=== PATIENT | male | born 1945 | race Caucasian/White ===

== ENCOUNTER 2019-07-11 08:16 | Day surgery (SDC) | payer MEDICARE, OTHER ==
--- NOTE | 2019-07-09 13:53 | HP ---
DATE OF SURGERY: 07/11/2019 ADMISSION DIAGNOSIS: Cyst of back. ANTICIPATED PROCEDURE: Excision. HISTORY OF PRESENT ILLNESS: PAST MEDICAL HISTORY: ALLERGIES: NONE. MEDICATIONS: Multiple. PAST SURGICAL HISTORY: Cholecystectomy. Finger surgery. Neck surgery. SOCIAL HISTORY: Negative. FAMILY HISTORY: Negative. REVIEW OF SYSTEMS: Diabetes, hypertension. PHYSICAL EXAMINATION: VITAL SIGNS: Normal. CHEST: Clear. COR: Regular. IMPRESSION: Cyst of back. PLAN: Excision.
[~2019-07-11 08:16] MED LIST: Lactated Ringers 0 ML IV ONE; Lactated Ringers 1,000 ML IV SCH; Sodium Chloride 0.9% 1000 ML 1,000 ML ONE; XYLOCAINE 1% HCL 20 ML MDV ONE
[2019-07-11] MEDS ORDERED: DEMEROL 50 MG IJ ONE (08:17)
[2019-07-11] MEDS ORDERED: VERSED 5 MG/5 ML IV ONE (08:17)
[2019-07-11 12:04] VITALS: BP 128/64; PULSE 63; O2SAT 97
--- NOTE | 2019-07-11 14:32 | OP ---
SURGERY DATE/TIME: 07/11/2019 1000 PREOPERATIVE DIAGNOSIS: A 4 cm sebaceous cyst of the back markedly infected and inflamed. POSTOPERATIVE DIAGNOSIS: A 4 cm sebaceous cyst of the back markedly infected and inflamed. PROCEDURE: Excision with packing. SURGEON: Jeremy Mendoza M.D. ANESTHESIA: IV sedation local. COMPLICATIONS: None. CONDITION: Stable. INDICATION: A patient requiring excision. DESCRIPTION OF PROCEDURE: Taken to surgery, routine prep and drape. A 4 cm cyst elliptically excised. Hemostasis obtained with electrocautery. Hemostasis was meticulous. It could not be primarily approximated. It had been a very nasty, inflamed cyst. It was packed with Iodoform. Sterile dressing applied. The patient tolerated the procedure satisfactorily.
== END 2019-07-11 11:55 | disposition home or self-care (01) ==
LOC: SDC 08:16
PROVIDERS: ATTEND Surgery
DX: L72.0 Epidermal cyst (principal); E11.9 Type 2 diabetes mellitus without complications; I10 Essential (primary) hypertension; Z79.899 Other long term (current) drug therapy
CPT/HCPCS: 82962; 88305; J2175; J2250